=== PATIENT | male | born 1975 | race Hispanic/Latino ===

== ENCOUNTER 2019-02-11 19:08 | Emergency (ER) | payer OTHER ==
[~2019-02-11] VITALS: Ht 167.6 cm; Wt 113.4 kg
[2019-02-11] MEDS ORDERED: ABILIFY15 MG PO (19:21)
[2019-02-11] MEDS ORDERED: BENZTROPINE MESY1 MG PO (19:22)
[2019-02-11] MEDS ORDERED: DIPHENHYDRAMINE50 M1 PO (19:23)
[2019-02-11] MEDS ORDERED: CYMBALTA20 MG PO (19:23)
[2019-02-11] MEDS ORDERED: ZOLOFT100 MG PO (19:24)
[2019-02-11] MEDS ORDERED: ZYRTEC10 MG PO (19:24)
[2019-02-11] MEDS ORDERED: GLUCOPHAGE XR500 MG PO (19:25)
[2019-02-11] MEDS ORDERED: MELOXICAM15 MG PO (19:25)
[2019-02-11] MEDS ORDERED: OMEPRAZOLE20 MG PO (19:26)
[2019-02-11] MEDS ORDERED: RANITIDINE HCL300 MG PO (19:27)
[2019-02-11] MEDS ORDERED: FLOMAX0.4 MG PO (19:28)
[2019-02-11] MEDS ORDERED: NASACORT10.8 ML NAS (19:30)
== END 2019-02-11 23:06 | disposition home or self-care (01) ==
LOC: ED 19:08
DX: M48.56XA Collapsed vertebra, not elsewhere classified, lumbar region, initial encounter for fracture (principal); N39.0 Urinary tract infection, site not specified; E11.9 Type 2 diabetes mellitus without complications; K21.9 Gastro-esophageal reflux disease without esophagitis; Z87.442 Personal history of urinary calculi; Z79.899 Other long term (current) drug therapy
CPT/HCPCS: 74176; 80053; 81001; 85025; 96361; 96374; 99284-25; J1885; J7030

== ENCOUNTER 2019-10-28 07:51 | Emergency (ER) | payer OTHER ==
[~2019-10-28] VITALS: Ht 167.6 cm; Wt 113.4 kg
[~2019-10-28 07:51] MED LIST: ABILIFY15 MG PO; BENZTROPINE MESY1 MG PO; CYMBALTA20 MG PO; DIPHENHYDRAMINE50 M1 PO; FLOMAX0.4 MG PO; GLUCOPHAGE XR500 MG PO; MELOXICAM15 MG PO; NASACORT10.8 ML NAS; OMEPRAZOLE20 MG PO; RANITIDINE HCL300 MG PO; ZOLOFT100 MG PO; ZYRTEC10 MG PO
== END 2019-10-28 13:18 | disposition home or self-care (01) ==
LOC: ED 07:51
DX: R11.2 Nausea with vomiting, unspecified (principal); R10.9 Unspecified abdominal pain; E11.9 Type 2 diabetes mellitus without complications; K21.9 Gastro-esophageal reflux disease without esophagitis; Z79.899 Other long term (current) drug therapy; Z79.84 Long term (current) use of oral hypoglycemic drugs
CPT/HCPCS: 74177; 80053; 81001; 83690; 85025; 99284-25; J2405; Q9967; U0002

== ENCOUNTER 2020-07-31 09:44 | Inpatient (IN) | payer OTHER ==
[~2020-07-31] VITALS: Ht 167.6 cm; Wt 79.4 kg
[~2020-07-31 09:44] MED LIST changes: +AVAPRO150 MG PO; +DOK100 MG PO; +FLUVOXAMINE MAL50 MG PO; +MELATONIN3 M3 PO; +OPCON-A EYE DRO15 ML OU; +PEPCID40 MG PO; +PROPRANOLOL HCL40 MG PO; +SULFAZINE EC500 MG PO; +ZOFRAN4 MG PO
[2020-08-01] MEDS ORDERED: OMEPRAZOLE20 MG PO (06:32)
[2020-08-01] MEDS ORDERED: VENTOLIN HFA18 GM (06:33)
--- NOTE | 2020-08-01 06:41 | NUR ---
PT WAS SWABBED FOR COVID 19 FULL PPE DOONED SAMPLE SENT [facility]
--- NOTE | 2020-08-01 07:39 | EKG ---
[facility] [address] [facility] [place] [address] Signed Normal sinus rhythm Incomplete right bundle branch block Borderline ECG No previous ECGs available Confirmed by DOTTY AVINA MD ([id number]) on 08/01/2020 7:39:16 AM Electronically Signed By: DOTTY AVINA MD 08/01/20 0739 PATIENT NAME: MARTIN KATHARINE GIBSON JR Electrocardiogram DATE OF : 77 PHYSICIAN: DOTTY AVINA MD REPORT #: [id number] REPORT IS CONFIDENTIAL AND NOT TO BE RELEASED WITHOUT AUTHORIZATION
--- NOTE | 2020-08-01 13:45 | NUR ---
08/01/20 1345 Josefa Mckeon 6181-PATIENT ARRIVED TO PACU ON 6L MASK RR EVEN SR. PATIENT OPENS EYES TO VERBAL STIMULI LEO BUSINESS ANALYST MANAGER AT BEDSIDE ASKING ABOUT PAIN PATIENT REPORTS "YES" REMAINS VERY DROWSY DOZES BACK TO SLEEP. ABDOMINAL INCISION CDI, LISSY DRAIN TO LLQ SANGUINOUS DRAINAGE. IVF INFUSING
--- NOTE | 2020-08-01 16:57 | NUR ---
Notified Kerrie VTJacqueline ODOC is needing clinicals today as this pt will be an IP. Faxed Surgery report, hand written H&P, and typed H&P. Called and updated this is all thats in the chart at this time as pt recently arrived on the floor. She requests I just send what we have at this time.
[2020-08-01] MEDS ORDERED: FLUVOXAMINE MAL50 MG PO (17:00)
[2020-08-01] MEDS ORDERED: MIRALAX119 GM PO (17:05)
[2020-08-01] MEDS ORDERED: AZULFIDINE500 MG PO (17:06)
--- NOTE | 2020-08-01 17:08 | NUR ---
MED REC COMPLETE
--- NOTE | 2020-08-01 20:15 | NUR ---
MARKETING SALES REPRESENTATIVE started 8/10 abd pain. on 2LNC, lungs clear bilat, abd large tender, firm midline incision covered with acticoat, nazia draina in place L abd. patent draining sanguineous drainage. dressing intact. abdomen with hypoactive bowel tones auscultated. f/c in place draining dark yellow urine. scds in place. IVF and morphine MARKETING SALES REPRESENTATIVE infusing RA, elevated. no c/o n/v
--- NOTE | 2020-08-01 22:13 | NUR ---
CALL LIGHT ANSWERED, COOL WASH CLOTH PROVIDED PER pt REQUEST. NO FURTHER NEEDS. ISAELURDS X2 IN ROOM, CALL LIGHT IN REACH.
--- NOTE | 2020-08-01 23:46 | NUR ---
IN WITH RN TO EMPTY MCFARLAND, RN EMPTY LISSY, DATA RECORDED IN CHART, NO FURTHER NEEDS AT THIS TIME
--- NOTE | 2020-08-01 23:46 | NUR ---
COMFORTABLE, WATCHING TV, ABD DRESSING IN PLACE, DENIES PASSING GAS YET, LISSY WITH SMALL AMOUNT OF DRAINAGE. TOLERATING SIPS OF CLEAR
--- NOTE | 2020-08-01 23:55 | NUR ---
PER PRIMARY RN, DYLAN PT NOW IN ROOM AIR, SPO2 AT 96%, RN AWARE OF SATS AT THIS TIME
--- NOTE | 2020-08-02 00:14 | NUR ---
CPOX ON, SATS 96-97%, O2 DC'D. AT THIS TIME, MONSERRAT BE REPLACED IF SATS DROPP TO 90% OR SO PER ORDERS. COMFORTBLE, NO DISTRESS. AWAKE WATCHING TV, USING GASOLINE ATTENDANT WITH GOOD PAIN CONTROL, ABD INCISION DRESSING INTACT WITH OLD DRAINAGE, PAULINA DRAINA PATENT. F/C PATENT. TOLERATING SIPS OF FLUIDS WELL. [address]
--- NOTE | 2020-08-02 01:35 | NUR ---
IN TO GET PT VITALS, REFILLED ICEWATER, PROVIDE NEW MARGARET CATALAN IN FOR ASSESMENT, NO FURTHER NEEDS AT THIS TIME
--- NOTE | 2020-08-02 01:53 | NUR ---
COOP WITH ASSESSMENT, REPOSITIONED IN BED, HOB ELEVATE, USING IS, TEMP SLIGHTLY ELEVATED 99.1, ROOM TEMP DOWN TO 70o, regular bedding left inplace, abd large softer, passed gas, HEA, abd dressing in place, nazia tube and F?C patent. [address] EOCI [address]
--- NOTE | 2020-08-02 03:52 | NUR ---
Pt walked in room around bed, tolerated fair, back to bed,scds inplace, room air, cpox inplace P106, sats 96%, pain rating 8/10 on return, uses HOTEL VALET ATTENDANT with good to fair pain relief
--- NOTE | 2020-08-02 06:00 | NUR ---
AM VITALS DONE, ICE WATER REFILLED, NEW CUP OF JUICE GIVEN, CATH/RONALD CARE DONE, NO FURTHER NEEDS AT THIS TIME
--- NOTE | 2020-08-02 06:24 | NUR ---
PT AWAKE MOST OF THIS SHIFT, WEANED OFF o2, Cpox IN PLACE PER ORDERS HE IS ON INTERNAL COMBUSTION ENGINE ASSEMBLER MORPHINE, TYLENOL ATC,FAIR TO GOOD PAIN RELIEF. MIDLINE ABD INCISION WITH ACTICOAT DRESSING W SMALL AMOUNT OF OLD DRAINAGE, BURPING AND PASSING , HYPERACTIVE BOWEL TONES AT THIS TIME, NO BM. ABD MUCH SOFTER THAN EARLIER ON SHIFT, F/C PATENT, NOT CHRONIC, VOIDING QS. L ABD PAULINA TUBE PATENT DRAINING SMALL AMOUNT OF SANGUINEOUS DRAINAGE. GOT UP AND WALKED IN ROOM, TOLERATED FAIR, BACK TO BED, WEARING ANKLE SHACKLES, 2 EOCI GUARDS IN ROOM.IVF INFUSING W/O PROBLEMS
--- NOTE | 2020-08-02 07:15 | NUR ---
SHIFT REPORT FROM DYLAN ROBLES INCLUDED: pt did not sleep well through the night. pt is now on a LABORER GOLD LEAF pump and reported pain between 4-7 throughout the nightshift. pt was able to get up and ambulate a few yeards in the halls last night, and verbally agrees to ambulate more today. pt VSS. pt has had no issues with N/V. No flatulence, or BM yet. Pt incision site currently CDI, LISSY draining sanguenous fluid WNL, and pt reports 6/10 pain and no nausea at this time. pt in bed, table and call light within reach of his two security officers. Leg shackles in place on pt.
--- NOTE | 2020-08-02 08:28 | NUR ---
PATIENT AWAKE IN BED, 2 GUARDS IN ROOM. BEDBATH COMPLETE, NEW GOWN AND SOCKS. PATIENT AMBULATED AROUND BED AND TO DOOR, 2 COAL PULVERIZER OPERATOR SBA.. PATIENT TOLERATED WELL, BUT VERY PAINFUL. BREAKFAST DELIVERED, RN IN ROOM. GUARDS SWITCHED SHIFT. CALL LIGHT IN REACH
--- NOTE | 2020-08-02 08:30 | NUR ---
ASSESSMENT + MED PASS pt assessment completed, VSS, pain 5/10 at this time. SWEETBREAD TRIMMER pump in use, CPOX on and reads 97% on RA. pt demonstrates proper use of the I.S. and reports using it "during the commercials". pt able to get all meds as ordered, without difficulty. pt midline CDI and LISSY drain site CDI, draining sanguenous fluid WNL. pt denies further needs at this time. pt in bed, table and call light within reach, two guards at bedside, ankle shackles on and in place, CMS intact.
--- NOTE | 2020-08-02 09:00 | NUR ---
VITALS AND I&O9S CHARTED. PATIENT IN BED, 2 EOCI GUARDS IN ROOM. MCFARLAND AND LISSY DRAINED.
--- NOTE | 2020-08-02 09:30 | NUR ---
ROUNDING pt on SECTION CHIEF pump and CPOX reads 98% on RA. pt reports using I.S. during commercials. pt reports 4/10 pain w/o nausea. pt midline CDI and LISSY drain site CDI, draining sanguenous fluid WNL. pt denies further needs at this time. pt in bed, table and call light within reach, two guards at bedside, ankle shackles on and in place, CMS intact.
--- NOTE | 2020-08-02 11:00 | NUR ---
ROUNDING pt reports 6/10 pain after ambulation earlier, but reports willingness to go again. pt on CONTROL PANEL ASSEMBLER pump and CPOX reads 98% on RA at this time. pt midline CDI and LISSY drain site CDI, draining sanguenous fluid WNL. pt denies further needs at this time. pt in bed, table and call light within reach, two guards at bedside, ankle shackles on and in place, CMS intact.
--- NOTE | 2020-08-02 11:16 | NUR ---
1PA PATIENT AMBULATED AROUND BED AND TO DOOR. 2EOCI GUARDS STANDING BY. PATIENT VERY PAINFUL, BUT TOLERATED WELL. DETERMINED. PATIENT SWEATY, WIPEDOWN OF GROIN AND BUTTOCKS PROVIDED. CALL LIGHT IN REACH,
--- NOTE | 2020-08-02 12:00 | NUR ---
ROUNDING pt requests more jello. pt denies nausea at this time. tolerating clears well. pt reports 6/10 pain after ambulation earlier. pt on EXTERIOR DOOR INSTALLER pump and CPOX reads 98% on RA at this time. pt midline CDI and LISSY drain site CDI, draining sanguenous fluid WNL. pt denies further needs at this time. pt in bed, table and call light within reach, two guards at bedside, ankle shackles on and in place, CMS intact.
--- NOTE | 2020-08-02 13:30 | NUR ---
IV STARTED IN RIGHT FOREARM + RIGHT WRIST IV DCd pt was bothered that his right hand IV was getting in the way of him when he gets up. pt requested that we "put a new one somewhere better". so 20g IV placed in his right forearm, WNL, one attempt. pt tolerated well. IV draws and flushes well. pt wrist IV DCd WNL, pressure dressing applied. pt denies further needs at this time. pt in bed, table and call light within reach of his guards, x2 at bedside.
--- NOTE | 2020-08-02 13:40 | NUR ---
SHIFT REPORT pt being seen as a 1 day post op (sigmoid collectomy). pts midline dressing still CDI, abdominal distention is slightly less than last shift. pt has been between 3-7/10 in pain throughout today and last night. pt on a morphine CASTING MACHINE OPERATOR AUTOMATIC pump at this time, CPOX running while on CASTING MACHINE OPERATOR AUTOMATIC, o2sat >95% all day. pt has been up to ambulate >3 times today. pt has been very cooperative with care plans. pt given bed bath by Nedra ABDUL. pt tolerating his clears diet without vomiting, but has had a few episodes of nausea. pt requested that we "move his IV" so a new IV was placed in his right forearm, and the right wrist IV was DCd WNL. Dr Garcia reports that he will likely DC the askew tomorrow, and that pts diet can advance after he has had a BM &/or passed gas. pt is from [facility] and has two guards in room with him at all times. pt A&O all shift, voiding quantity sufficient.
--- NOTE | 2020-08-02 14:00 | NUR ---
MED PASS + ASSESSMENT + CLERICAL OFFICE WORKER MED REFILL pt assessment complete, VSS. pts midline still CDI and LISSY drain dressing CDI and draining red/sanguenous fluid. pt was just up to walk again and is reporting 9/10 pain and no nausea at this time. pt denies further needs at this time, table and call light within reach. two officers in room at all times. pt able to take all meds without difficulty. Jazlyn RN to bedside to teach me how to reset the CLERICAL OFFICE WORKER pump. pt CLERICAL OFFICE WORKER pump refilled and set as ordered. pt RR 16, even and unlabored, pt alert and cooperative with cares. table and call light within reach, officers at bedside
--- NOTE | 2020-08-02 15:00 | NUR ---
ROUNDING pt in bed, denies needs at this time. table and call light within reach. guards at bedside.
--- NOTE | 2020-08-02 16:00 | NUR ---
PHONE CONVERSATION WITH BIANCA ochoa has been reporting heartburn. ordered mylanta/maalox 30mls Q6 PRN, and protonix 40mgs IVP daily. orders placed.
--- NOTE | 2020-08-02 16:30 | NUR ---
MED PASS the vazquezursarah had shift change and two new guards are present. pt given the Maalox and protonix as ordered. pt had requested something to "stop the pulling on his askew" and I placed a stat lock, but then he reported that it was bothersome to have something there on his leg. he denied that it hurt him, and maintained that it was just "not feeling right to have something else down there now". Stat lock removed and pt was grateful. pt repositioned in bed, and ankle shackles assessed, CMS intact. pt denies further needs at this time. table and call light within reach, new guards verbalized understanding of call light.
--- NOTE | 2020-08-02 16:35 | NUR ---
Pt resides at [facility] and will return to their infirmary on dc. He was able to walk in the room with RN and aid today. Pt remains very painful and not tolerating excercise well.
--- NOTE | 2020-08-02 17:30 | NUR ---
ROUNDING pt had walked again, and reports that it increases his pain but helps his gas and helps him to burp. pt denies needs at this time. pt in bed, table and call light within reach, 2 guards present.
--- NOTE | 2020-08-02 17:45 | NUR ---
SBA PATIENT WALKING AROUND BED TO DOOR AND BACK. PAINFUL, BUT TOLERATED WELL. 2 GUARDS IN ROOM. VITALS AND I&OS CHARTED. MCFARLAND AND LISSY DRAINED. PATIENT REPOSTITIONED. CALL LIGHT IN REACH, NO OTHER NEEDS
--- NOTE | 2020-08-02 18:13 | NUR ---
ROUNDING pt denies needs at this time. pt in bed, table and call light within reach, 2 guards present.
--- NOTE | 2020-08-02 19:30 | NUR ---
FINISHED RECEIVING SHIFT REPORT. PATIENT RESTING IN BED. 2 EOCI OFFICERS PRESENT. PATIENT IN ANKLE RESTRAINTS. PATIENT USING HIS RISK DEVELOPER BUTTON AND HAS NO NEEDS AT THIS TIME. PAIN IN THE ABD IS 6/10 AND PATIENT JUST PUSHED THE BUTTON. MCFARLAND IS DRAINING. MIDLINE ABD DRESSING DRY AND INTACT. CALL LIGHT IS IN REACH.
--- NOTE | 2020-08-02 21:15 | NUR ---
PATIENT REMAINS IN BED, LISSY DRAINED FOR 10MLS, MCFARLAND EMPTIED, CALL LIGHT IS IN REACH. PATIENT'S PAIN UNDER CONTROL WITH CONCRETE MIXER OPERATOR HELPER. BOWEL TONES PRESENT IN ALL 4 QUADS. RESPIRATIONS REGULAR AND EVEN. 2 EOCI OFFICERS REMAIN PRESENT IN THE ROOM. CALL LIGHT IN REACH. NEW ICE BAG FOR ABD GIVEN, NEW ICE WATER GIVEN. NO OTHER NEEDS AT THIS TIME.
--- NOTE | 2020-08-02 22:21 | NUR ---
PATIENT CALL AND WAS HAVING SOME LOWER LEFT QUAD ABD CRAMPS. PATIENT PULLED UP AND REPOSITIONED IN BED, HAD PATIENT PUNCH HIS FOURTH MATE BUTTON FOR 7/10 ABD PAIN, LISSY DRAIN TUBING STRIPPED AND GOT A LITTLE MORE DRAINAGE OUT. 2 CORRECTIONS OFFICERS REMAIN IN THE ROOM AND PATIENT HAS ANKLE RESTRAINTS ON. PATIENT HAS CALL LIGHT AND ICE PACK PLACED IN THE AREA OF DISCOMFORT. PATIENT WILL CALL IF HE HAS MORE NEEDS.
--- NOTE | 2020-08-02 23:42 | NUR ---
PATIENT HAVING 10/10 ABD PAIN, 4 HOUR LOCKOUT ON GARNISHMENT SPECIALIST REACHED, CALLED WITH PATIENT'S PAIN CONCERNS AND VS.ORDER FOR 2-5MG IV MORPHINE Q30 MINUTES BREAKTHROUGH PAIN GIVEN. PATIENT GIVEN 4MG IV MS AND PAIN CAME DOWN TO 4/10, PATIENT WAS ALSO HAVING NAUSEA AND 4MG IV ZOFRAN WAS ALSO GIVEN. CALL LIGHT IN REACH.
--- NOTE | 2020-08-03 00:05 | NUR ---
PATIENT CONTINUES TO HAVE NAUSEA AND 4MG IV ZOFRAN REPEATED AND PATIENT'S NAUSEA IS IMPROVING. CALL LIGHT IN REACH. 2 EOCI OFFICERS REMAIN PRESENT.
--- NOTE | 2020-08-03 00:46 | NUR ---
PT ASKED FOR A JELLO, REPLACED APPLE JUICE, EMPTIED MCFARLAND AT THIS TIME
--- NOTE | 2020-08-03 02:41 | NUR ---
SEE THE NEXT NOTE FOR THIS TIME IT WAS A LATE ENTRY.
--- NOTE | 2020-08-03 03:30 | NUR ---
PATIENT'S SATS DROPPING INTO THE 80'S WHEN ASLEEP, 2L/NC PUT ON PATIENT FO SLEEPING. PATIENT'S PAIN CONTROLLED AT 4/10. CALL LIGHT IN REACH AND EOCI OFFICERS REMAIN AT BEDSIDE.
--- NOTE | 2020-08-03 04:32 | NUR ---
PATIENT HAS AGAIN MET HIS 4 HOUR LOCKOUT AND HAVING 8/10 LLQ ABD PAIN. 4MG IV MS GIVEN AND 1,000MG OFIRMEV IV GIVEN. PATIENT STOOD AT THE BEDSIDE TO ADJUST HIS LINEN ON HIS BED, PATIENT ABLE TO SCOOT HIMSELF UP IN BED. CALL LIGHT IN REACH AND 2 EOCI OFFICERS AT BEDSIDE.
--- NOTE | 2020-08-03 05:46 | NUR ---
PATIENT HAS HAD A FAIR AMOUNT OF PAIN THIS SHIFT MAINLY IN THE LLQ AREA. PATIENT WAS HITTING HIS LOCKOUT ON HIS VENEER CUTTER AND HAD TO BE CALLED AND IV ORDERS FOR MORPHINE IV FOR BREAKTHROUGH PAIN WERE GIVEN. PATIENT HAS HAD TO HAVE 4MG IV TWICE THIS SHIFT WHEN HE HAD HIT THE LOCKOUT JARVIS ON HIS VENEER CUTTER. PATIENT'S CURRENT PAIN IS 3-4/10 AND HE FEELS COMFORTABLE. PATIENT TAKING PO FLUIDS WELL AND URINE OUTPUT FROM MCFARLAND IS QS. BOWEL TONES ARE HEARD X4 AND PATIENT DID HAVE A FEW HOURS ON 2L/NC WHEN SATS WOULD DROP INTO THE 80'S WHILE SLEEPING, BUT BACK ON RA AT THIS TIME WITH CONTINOUS O2 SATS IN THE 90'S. 2 EOCI OFFICERS HAVE REMAINED AT BEDSIDE ALL SHIFT AND PATIENT REMAINS IN ANKLE RESTRAINTS. CALL LIGHT IS IN REACH AND NO OTHER NEEDS AT THIS TIME.
--- NOTE | 2020-08-03 08:09 | NUR ---
PATIENT UP IN CHAIR, 2 GUARDS IN ROOM. FACE AND HANDS WASHED, BODY OF PATIENT WIPED DOWN WELL. CALL LIGHT AND BEDSIDE TABLE IN REACH. NO OTHER NEEDS AT THIS TIME
--- NOTE | 2020-08-03 08:45 | NUR ---
SCHEDULED MEDS GIVEN, PT UP TO RECLINER FOR CLEAR LIQUID DIET, TAKING SM SIPS, C/O INCREASED CRAMPING THIS AM, DENIES PASSING FLATUS YET. ACTIVE BOWEL SOUNDS. USING MORPHINE LINE SUPERVISOR APPROP. DISCUSSED WITH PATIENT IMPORTANCE OF WALKING TODAY TO HELP STIMULATE BOWELS. PT IS RELUCTANT BUT AGREES TO TRY.
--- NOTE | 2020-08-03 09:30 | NUR ---
DR VALENZUELA HERE TO SEE PT, AGREES PT NEEDS TO WALK.
--- NOTE | 2020-08-03 10:16 | OR ---
[facility] [address], [place] [address] Signed DATE OF OPERATION: 08/01/2020 SURGEON: Demian Valenzuela MD PREOPERATIVE DIAGNOSES: 1. Persistent left lower abdominal pain, chronic recurrent episodes of diverticulitis. 2. Morbid obesity (truncal obesity). POSTOPERATIVE DIAGNOSES: 1. Persistent left lower abdominal pain, chronic recurrent episodes of diverticulitis. 2. Morbid obesity (truncal obesity). PROCEDURE: 1. Sigmoid colectomy with end-to-end coloproctostomy (prolonged, complicated, difficult). 2. Mobilization of splenic flexure. ANESTHESIA: General endotracheal, Demian Kovacs CRNA and bilateral tap blocks. Elizabeth De Santiago CRNA and local superior aspect incision 30 mL of 0.25% Marcaine with epinephrine. INDICATION: This 44-year-old man is a prisoner at [facility] and has had chronic recurrent left lower abdominal pain related to diverticulitis demonstrated on CT scan and with colonoscopy in June confirming diverticulosis, but no sign of malignancy. He has multiple family members with the same problem. He strongly wishes to have surgical resection of this problem. He understands the risks of operation including, but not limited to, bleeding, infection, anastomotic failure, need for other indicated procedures, and so on. Understanding this, he wished to proceed. FINDINGS: The patient has significant truncal obesity including thick abdominal wall pannus and thickened fatty mesentery of the colon and elsewhere. A very thickened omentum was also noted. The colon itself did not show signs of acute inflammation. There were diverticula most dominantly in the sigmoid. There was no sign of perforation, scarring, or abscess. Sigmoid resection to the mid rectum was undertaken and an end-to-end coloproctostomy undertaken. Although, I typically would use a side to end coloproctostomy, the caliber of the proximal and distal segments for anastomosis were essentially the same and despite great mobility of the splenic flexure as much redundancy of colon as possible was utilized to provide a tension-free anastomosis. A leak testing was performed as well showing no sign of leak at the anastomosis. Electronically Signed By: DEMIAN VALENZUELA MD 08/03/20 1016 PATIENT NAME: KATHARINE CANNON JR OPERATIVE REPORT DATE OF : 77 REPORT #: [id number] PHYSICIAN: DEMIAN VALENZUELA MD PCP: JOSEFA GIRARD NP REPORT IS CONFIDENTIAL AND NOT TO BE RELEASED WITHOUT AUTHORIZATION [facility] [address], [place] [address] Signed DESCRIPTION OF PROCEDURE: The patient was brought to the operating room, given a general endotracheal anesthetic. Preoperative antibiotic Ancef and Flagyl were given. A Carty catheter was placed. The abdomen was prepared with a chlorhexidine solution after clipping and sterilely draped. An incision was made in the low midline later extended just above the umbilicus. The abdominal wall pannus was nearly 4-6 inches thick. The abdomen was entered showing a very thickened omentum as well. Marked obesity of the mesenteric folds was noted. A Bookwalter retractor was affixed to the table. The small bowel was examined and found to be normal. The appendix was normal. The colon itself had diverticular changes, but no sign of perforation, abscess, or stricture. A Bookwalter retractor was used and small bowel was packed to the right side of the abdomen. This gave good exposure to the thickened sigmoid mesentery. The white line of Toldt was incised mobilizing the left colon and sigmoid to the midline. Dissection was carried inferiorly to the upper to mid rectum. To facilitate further dissection of the sigmoid mesentery, the distal descending colon was designated as the point of transection. The area for transection of the mesentery was scored and using tonsil clamps, the mesenteric vascular pedicles secured. They were doubly secured with 0 silk ties. A 75 mm KYUNG stapling device was used to transect the distal descending colon and the remaining left colon retracted cephalad. Sequential application of tonsil clamps to the sigmoid mesentery was undertaken, doubly securing the vascular pedicles. Dissection was carried to the level of the sacral promontory and using electrocautery, the mesentery scored anteriorly designating an area considered to the upper to mid rectum. This area was freed more fully with electrocautery, ultimately identifying the rectum which was (surprisingly) not particularly large as usually is the case. The area of anticipated anastomosis was such that a space of about 6 cm between the proximal and distal segments was noted. This necessitated dedicated splenic flexure mobilization. The bulky left colonic mesentery was bluntly freed from the retroperitoneum using electrocautery and blunt dissection and peritoneal attachments in the region of the splenic flexure were similarly mobilized. The left colon could be more fully mobilized, ultimately bringing it to an area, for which anastomosis would be appropriate. Though normally I would recommend and do a side-to-end coloproctostomy, so as to take advantage of the mobilized colon and avoid a tension-free anastomosis, an end-to-end coloproctostomy was deemed more advisable. There was no significant mismatch between the proximal and distal segments either. The KYUNG stapling device was used to transect the mid rectum. The mesentery and Electronically Signed By: DEMIAN VALENZUELA MD 08/03/20 1016 PATIENT NAME: KATHARINE CANNON JR OPERATIVE REPORT DATE OF : 77 REPORT #: [id number] PHYSICIAN: DEMIAN VALENZUELA MD PCP: JOSEFA GIRARD NP REPORT IS CONFIDENTIAL AND NOT TO BE RELEASED WITHOUT AUTHORIZATION [facility] [address], [place] [address] Signed peritoneal folds had been scored so as to provide more mobility of the distal segment as well. With meticulous care, an end-to-end coloproctostomy was fashioned using interrupted 3-0 silk sutures. A two layer techinique was used. The mesenteric defect was secured with 3-0 silk sutures as well. Both proximal and distal segments appeared completely viable. Irrigation was undertaken and the edges of the anastomosis were marked with clips for future reference as necessary. A red rubber catheter was passed by the circulating nurse into the rectum and the anastomosis submerged under sterile saline. Insufflation of the rectum with a red rubber catheter showed no sign of leak at the anastomosis. The catheter was removed and air held within the rectum was evacuated with manual pressure. Through a left lower quadrant incision, a 7 mm flat Enrique drain was placed and aligned into the left pericolic gutter. Isolating laparotomy pads were removed and the omentum replaced to a natural configuration as was the small bowel. Attention was then turned towards closure. The midline fascia was reapproximated with running bidirectional #1 PDS suture. Subcutaneous tissue was copiously irrigated and skin closed with running subcuticular 3-0 Vicryl. Steri-Strips were applied as was a silver sponge dressing. The drain was attached to bulb suction. BLOOD LOSS: Less than 50 mL in aggregate. The operation was very prolonged, complicated, and difficult on the basis of his significant obesity, but it was accomplished safely. At conclusion of the procedure, tap blocks were placed. Not mentioned previously was an injection of 30 mL of 0.25% Marcaine with epinephrine into the superior aspect of the incision just above the umbilicus to cover a dermatome that might not be entirely covered by the tap block. MD CARTER Ayala/NIAL /[id number] Electronically Signed By: DEMIAN VALENZUELA MD 08/03/20 1016 PATIENT NAME: KATHARINE CANNON OPERATIVE REPORT DATE OF : 77 REPORT #: [id number] PHYSICIAN: DEMIAN VALENZUELA MD PCP: JOSEFA GIRARD NP REPORT IS CONFIDENTIAL AND NOT TO BE RELEASED WITHOUT AUTHORIZATION [address] [address] Signed cc: Josefa Girard NP Copies: JOSEFA GIRARD NP ~ Electronically Signed By: DEMIAN VALENZUELA MD 08/03/20 1016 PATIENT NAME: MARIO KATHARINE GIBSON JR OPERATIVE REPORT DATE OF : 77 REPORT #: [id number] PHYSICIAN: DEMIAN VALENZUELA MD PCP: BLOOD,JOSEFA PRESTON NP REPORT IS CONFIDENTIAL AND NOT TO BE RELEASED WITHOUT AUTHORIZATION
--- NOTE | 2020-08-03 10:37 | NUR ---
PATIENT IS SITTING IN [place] WATCHING TV. GUARDS AT BEDSIDE. VITALS AND I&OS ARE DONE AND DOCUMENTED. CALL LIGHT IS IN REACH. NO FUTHER ASSISTANCE NEEDED.
--- NOTE | 2020-08-03 11:00 | NUR ---
PT AMBULATING LOOP IN HALLWAY ACCOMPANIED BY 2 GUARDS AND TWO SCREENER PERFUMER'S.
--- NOTE | 2020-08-03 11:30 | NUR ---
BRUNA GILMAN AT THIS TIME. WILL MONITOR UO CLOSELY.
--- NOTE | 2020-08-03 12:00 | NUR ---
PATIENT AMBULATED IN NGUYEN, FROM ROOM TO END OF NGUYEN USING FWW.. PAINFUL BUT TOLERATED WELL. 2 [employer] GUARDS STANDING BY. BACK TO CHAIR FOR LUNCH, ICE PACK PROVIDED.
--- NOTE | 2020-08-03 14:30 | NUR ---
PATIENT AMBULATED TO END OF NGUYEN AND AROUND CORNER. BACK TO CHAIR. LEGS ELEVATED, CALL LIGHT IN REACH. PATIENT BELCHING, BUT UNABLE TO PASS GAS. 2 GUARDS IN RRROM
--- NOTE | 2020-08-03 14:37 | NUR ---
PT AMBULATING BETTER, UP IN RECLINER FOR MEALS, MAALOX GIVEN AT THIS TIME FOR C/O INDIGESTION, MONITORING UO, NO VOID YET. DENIES FLATUS, ABD IS DISTENDED BUT DOES HAVE ACTIVE BOWEL TONES. DENIES NAUSEA.
--- NOTE | 2020-08-03 15:55 | NUR ---
PATIENT UP TO BR, UNABLE TO VOID MORE THAN A FEW DROPS. BACK TO CHAIR. 2 GUARDS IN ROOM. THESE 2 PARTICULAR GUARDS USUALLY STAY SEATED AND ON PERSONAL CELL PHONES WHEN THIS MEAT COOLER IS IN ROOM (UNLESS PATIENT IS UP IN ROOM OR AMBULATING) CALL LIGHT IN REACH, NO OTHER NEEDS AT THIS TIME
--- NOTE | 2020-08-03 16:00 | NUR ---
PATIENT UP TO BR. WAS ABLE TO VOID A FEW DROPS. 2 [employer] GUARDS IN ROOM. BACK TO CHAIR, CALL LIGHT IN REACH. ICE CHIPS AND ICE PACK PROVIDED.
--- NOTE | 2020-08-03 16:30 | NUR ---
PT WAS BLADDER SCANNED FOR 200ML. PT DOES FEEL LIKE HE NEEDS TO VOID. WILL CONT. TO MONITOR CLOSELY.
--- NOTE | 2020-08-03 18:06 | NUR ---
PATIENT AWAKE IN BED. 2 GUARDS IN ROOM. PATIENT HAS HAD 550 OUT, RN NOTIFIED. CALL LIGHT IN REACH, NO OTHER NEEDS AT THIS TIME
--- NOTE | 2020-08-03 18:19 | NUR ---
PT HAS BEEN AMBULATING LOOP IN HALLWAY WITH SBA AND ACCOMPANIED BY 2 GUARDS. ABD IS DISTENDED AND TENDER, ACTIVE BT'S, PT DENIES FLATUS YET, HAS BEEN SIPPING CLEAR LIQUIDS AND EATING A FEW BITES OF JELLO. MEDICATED FOR HEARTBURN USING MAALOX WITH GOOD RELIEF, CONT. USING MORPHINE TALENT DEVELOPMENT COORDINATOR ORDERED AND MAINTAINING PAIN SCALE ABOUT 5. [place] DC'D AND HAS VOIDED 550ML YELLOW URINE SINCE DC'D. SABRINAG IS CDI TO ABD. LISSY PATENT WITH SCANT AMOUNT RED SERROUS FLUID. USING CALL LIGHT APPROP.
--- NOTE | 2020-08-03 18:25 | NUR ---
PATIENT AWAKE IN BED, 2 GUARDS AT BEDSIDE. CALL LIGHT WITHIN REACH
--- NOTE | 2020-08-03 20:04 | NUR ---
PATIENT FINISHED WALKING 4 LABS AROUND MED/SURG WITH THE 2 [employer] OFFICERS ASSIGNED TO HI. PATIENT'S PAIN REMAINS 4/10 AND PATIENT IS USING HIS MINER HELPER. PATIENT HAS NO OTHER NEEDS AT THIS TIME. PATIENT UP IN THE BATHROOM WITH OFFICERS PRESENT.
--- NOTE | 2020-08-03 20:43 | NUR ---
VS AND I&O COMPLETED. NO OTHER NEEDS AT THIS TIME. NUTRITION EDUCATION PROVIDED.
--- NOTE | 2020-08-03 21:14 | NUR ---
PATIENT HAVING SOME CONCERN ABOUT HIS TESTICLES BEING SWOLLEN, THIS NURSE DID NOT SEE ANY VISUALLY NOTEABLE SWELLING. PATIENT GIVEN A CUP OF SODA AND A CUP OF JELLO REQUESTED. PATIENT HAS NO OTHER NEEDS AT THIS TIME. CALL LIGHT IN REACH AND 2 [employer] OFFICERS AT BED SIDE.
--- NOTE | 2020-08-03 21:43 | NUR ---
PATIENT CONCERNED THERE MIGHT BE LEAKAGE FROM HIS DRESSINGS INTO HIS ABD FOLD. INFORMED PATIENT THAT THERE WAS NO LEAKAGE, BUT DID CLEAN THE ARE WITH SOME WIPES FOR COMFORT. PATIENT VERBALIZED UNDERSTANDING. 2 [employer] OFFICERS REMAIN AT BEDSIDE. CALL LIGHT IN REACH.
--- NOTE | 2020-08-03 23:14 | NUR ---
PATIENT CALLED FOR AN ICE PACK AND THIS WAS GIVEN TO PLACE OVER SURGICAL SITE. NO OTHER NEEDS AT THIS TIME. CALL LIGHT IN REACH.
--- NOTE | 2020-08-04 02:13 | NUR ---
PATIENT CALLED TO INFORM THIS NURSE HE WAS NOW PASSING FLATUS. PATIENT HAD NO OTHER NEEDS AT THIS TIME. CALL LIGHT IN REACH AND 2 [employer] OFFICERS PRESENT IN PATIENTS ROOM.
--- NOTE | 2020-08-04 03:18 | NUR ---
PATIENT CALLED BECAUSE HIS PUMP WAS BEEPING. NEW BAG OF IV FLUID HUNG, NEW ICE WATER GIVEN, PATIENT ALSO GIVEN SOME MAALOX FOR HEARTBURN, PATIENT HAD NO OTHER NEEDS AT THIS TIME. CALL LIGHT IN REACH AND 2 [employer] OFFICERS IN THE ROOM.
--- NOTE | 2020-08-04 04:33 | NUR ---
WHEELCHAIR DRIVER SYRINGE EMPTY, NEW SYRINGE PLACED. MARGARET CLARK WITNESSED. pt HAS WHEELCHAIR DRIVER BUTTON AND CALL LIGHT IN HAND. RATED PAIN 4/10. NO FURTHER REQUESTS AT THIS TIME.
--- NOTE | 2020-08-04 05:30 | NUR ---
PATIENT HAS SLEPT ON AND OFF THROUGH THE NIGHT. PTIENT'S SATS WILL DROP INTO THE 80'S WHEN ASLEEP, SO 2L/NC PLACED FOR SLEEP. PATIENT REMAINS ON CONTINUOUS PULSE OX FOR MISSILE CONTROL PILOT USE. PATIENT'S PAIN BETTER CONTROLLED TONIGHT AND NO BREAKTHROUGH MEDS WERE GIVEN AND PATIENT'S PAIN HAS REMAINED 3-4/10. PATIENT AMBULATING TO THE BATHROOM WELL AND VOIDING QS. PATIENT HAS BEEN PASSING FLATUS THE SECOND HALF OF THE SHIFT AND ABD FEELS MUCH MORE COMFORTABLE. PATIENT AMBULATED WITH WALKER AND 2 [employer] OFFICERS AROUND THE MED/SURG FLOOR 4 LAPS ON THIS SHIFT. VS HAVE BEEN STABLE. MIDLINE DRESSING REMAINS INTACT WITH SOME SMALL DRY DRAINAGE NOTED ON IT WELL SOME SMALL DRY DRAINAGE AROUND ON THE DRESSING AROUND LISSY DRAIN. LISSY HAS ONLY PUT OUT A SMALL AMOUNT OF DRAINAGE THIS SHIFT. PATIENT HAS BEEN UP A FAIR AMOUNT AND HAS NOT WANTED TO KEEP HIS SCD'S ON, SO THEY HAVE NOT BEEN USED MUCH. CALL LIGHT IS IN REACH AND [employer] OFFICERS REMAIN IN THE ROOM. NO OTHER CARE NEEDS AT THIS TIME.
--- NOTE | 2020-08-04 09:00 | NUR ---
PT IS ALERT, IN BETTER SPIRITS TODAY, UP TO BATHROOM WITH SBA ONLY TO ASSIST WITH IV POLE, DENIES NAUSEA, PASSING FLATUS, STATES HE IS HUNGRY, GOOD PAIN CONTROL WITH MORPHINE DOG CATCHER ORDERED. 2 GUARDS IN ROOM, LISSY IS TAPED SECURELY. USING CALL LIGHT APPROP.
--- NOTE | 2020-08-04 10:41 | NUR ---
PATIENT IS CALM. FRESH WATER GIVEN. VITALS AND I&OS ARE DONE AND DOCUMENTED. 2 GUARDS IN ROOM. CALL LIGHT IS IN REACH. NO FURTHER NEEDS AT THIS TIME.
--- NOTE | 2020-08-04 10:46 | NUR ---
DR VALENZUELA IN TO SEE PT ALL QUESTONS ANSWERED, PLAN GOING FORWARD DISCUSSED.
--- NOTE | 2020-08-04 11:13 | NUR ---
PT UP AMBULATES A COUPLE LAPS AROUND THE NGUYEN WELL TOLERATED. RETURNS TO ROOM SITTING UP IN THE CHAIR. CREAM OF MUSHROOM SOUP PROVIDED OXY X2. PT ENCOURAGED NOT TO USE PLANTING MATERIAL CARRIER UNLESS HE HAS TO, UNDERSTANDING VERBALILZED
--- NOTE | 2020-08-04 14:19 | NUR ---
PT C/O CRAMPING TYLENOL ADMINISTERED. PT AMBULATES THE NGUYEN SEVERAL TIMES THIS SHIFT RETURNS TO RESTING IN BED. ANIL X2 PRESENT. PT TOLERATES SOUP FOR LUNCH NO NAUSEA, JUST THE CRAMPING. EDUCATION PROVIDED PT VERBALIZES UNDERSTANDING.
--- NOTE | 2020-08-04 14:39 | NUR ---
PATIENT IS PAYING IN BED. 2 GUARDS IN ROOM. FRESH WATER AND SPRITE GIVEN. VITALS AND I&OS ARE DONE AND DOCUMENTED. CALL LIGHT IS IN REACH. NO FURTHER NEEDS AT THIS TIME.
--- NOTE | 2020-08-04 17:32 | NUR ---
PT TOLERATING FULL LIQUID DIET WELL. AGREES TO AMBULATE THE HALLS AGAIN WHEN HE GETS UP TO TOILET. USES I/S APPROPRIATELY WITH INSTRUCTION. GAURDS CONTINUE IN THE ROOM. PAIN MEDS ADMINISTERED PER REQUEST
--- NOTE | 2020-08-04 19:25 | NUR ---
WENT IN TO EMPTY THE LISSY.
--- NOTE | 2020-08-04 19:44 | NUR ---
REPORT RECEIVED FROM DAYSFAROOQFT RN. LAYING IN BED AWAKE AND ALERT. PT REPORTS NO FURTHER NEED WHEN ASKED, WILL CONTINUE PLAN OF CARE.
--- NOTE | 2020-08-04 20:11 | NUR ---
CALL LIGHT ANSWERED. pt REQUESTING PRN HEARTBURN MEDICATION. PRIMARY RN NOTIFIED. VSS. pt ANSWERING QUESTIONS REGARDING MEDICATION REGIMEN, OXYGEN. QUESTIONS ANSWERED. pt 97% ON RA. CPOX IN PLACE FOR MONITORING OVERNIGHT. PRIMARY RN [place] IN ROOM.
--- NOTE | 2020-08-04 20:25 | NUR ---
THIS RN IN TO ASSESS PT AND ADMINISTER SCHEDULED MEDICATIONS. PT LAYING IN BED AWAKE AND ALERT. PT REPORTS A 5/10 ABDOMINAL PAIN. PT WAS GIVEN A WARM PACK IN A PILLOWCASE TO HELP WITH THE PAIN. SCHEDULED MEDICATIONS ADMINISTERED. PT REPORTS HAVING A BM EARLIER THAT WAS BLACK. PT INSTRUCTED NOT TO FLUSH NEXT BM TO ALLOW THIS RN TO INSPECT IT. PT AGREED TO THAT. PT ASSESSED AT THIS TIME, ABDOMINAL INCISION AND LISSY SITES ARE C/D/I. WITH NO NEW SIGNS OF BLEEDING OR DRAINAGE. LISSY TUBE EMPTIED EARLIER BY RIGGING UP WORKER WHICH CONTAINED 20ML. IVF INFUSING ORDERED AT THIS TIME. PT REPORTS NO FURTHER NEEDS WHEN ASKED. CORRECTIONAL OFFICERS IN ROOM, CALL LIGHT IN REACH, BED IN LOWEST POSITON, WILL CONTINUE PLAN OF CARE.
--- NOTE | 2020-08-04 22:05 | NUR ---
RESPONDED TO PT CALL LIGHT. THIS RN IN TO ADMINISTER SCHEDULED TYLENOL. PT SITTING AT BEDSIDE AWAKE AND ALERT. PT STATES HE HAD 8/10 ABDOMINAL PAIN AT THIS TIME. PT STATES THE WARM PACK HELPED WITHT HE PAIN BUT HE WANTED TO TRY A COLD PACK. COLD PACK PROVIDED TO PT FOR PAIN/DISCOMFORT. PT REPORTS NO FURTHER NEEDS AT THIS TIME AND IS NOW LAYING BACK IN BED WATCHING TV. WILL CONTINUE PLAN OF CARE. CALL LIGHT IN REACH, BED IN LOWEST POSTION. IVF INFUSING ORDERED.
--- NOTE | 2020-08-04 23:36 | NUR ---
THIS RN IN TO ASSESS PT'S PAIN LEVEL. PT AWAKE AND ALERT LAYING IN BED AND STATES HE HAS 8/10 PAIN EVEN AFTER TYLENOL AND ICE PACK. PT REQUESTS ONLY 1 OXYCODONE AT THIS TIME HE STATES 2 MADE HIM DROWSY. PRN OXYCODONE 5MG ADMINISTERED. PT THEN HAD A CRAMP SHORTLY AFTER WHICH MADE HIM HAVE A SMALL EPISODE OF INCONTINENCE/STOOL IN THE BED. PT ABLE TO GET UP WITHOUT ASSISTANCE AND AMBULATE TO TO BATHROOM TO HAVE A BM AND VOID. PT ABLE TO GET BACK UP WITHOUT ASSISTANCE AND WALK OVER TO BED. PT REPORTS NO SOB OR LIGHTHEADEDNESS WHEN WALKING AND STATES HIS PAIN REMAINED CONSISTENT WHILE AMBULATING. PT NOW IN BED WITH CLEAN LINENS, IVF INFUSING ORDERED. PT PROVIDED WITH ICE WATER AND JUICE HE REQUESTED. PT REPORTS NO FURTHER NEEDS, WILL CONTINUE PLAN OF CARE. CALL LIGHT IN REACH, BED IN LOWEST POSITION, 2 CORRECTIONAL OFFICERS IN ROOM, CPOX MONITORING PT.
--- NOTE | 2020-08-05 00:17 | NUR ---
THIS RN IN TO ASSESS PT'S PAIN LEVEL. PT STATES HE IS STILL IN PAIN AND THE REQUESTED AMOUNT HELPED A SMALL AMOUNT WITH THE PAIN. PT REPORTS NO FURTHER NEEDS AT THIS TIME, ICE PACK WITH PT IN PLACE. PT REPORTS NO FURTHER NEEDS A T THIS TIME WHEN ASKED, WILL CONTINUE PLAN OF CARE. CALL LIGHT IN REACH, BED IN LOWEST POSITION.
--- NOTE | 2020-08-05 01:30 | NUR ---
RESPONDED TO PT CALL LIGHT. PT STATES IV WAS ALARMING. VOLUME ADDED TO IVF. PT STATED HE WAS HAVING 8/10 PAIN. PRN OXYCODONE TITRATED TO MAXIMUM DOSE. PT PROVIDED WITH AN ENSURE SHAKE PER HIS REQUEST. PT REPORTS NO FURTHER NEEDS AT THIS TIME. PT ASSESSED AT THIS TIME. MIDLINE INCISION C/D/I, LISSY SITE C/D/I WITH NO SIGNS OF BLEEDING. LISSY TUBE CONTAINS A SMALL AMOUNT OF SANGUINOUS FLUID. PT REPORTS NO FURTHER NEEDS AT THIS TIME, IVF INFUSING ORDERED. CALL LIGHT IN REACH, BED IN LOWEST POSITION, 2 CORRECTIONAL OFFICERS IN ROOM, WILL CONTINUE PLAN OF CARE.
--- NOTE | 2020-08-05 02:35 | NUR ---
STROKE BELT SANDER OPERATOR PUMP REMOVED FROM pt ROOM STROKE BELT SANDER OPERATOR IS DISCONTINUED. 7ML OF MORPHINE REMAINING IN STROKE BELT SANDER OPERATOR SYRINGE. WASTED PER PROTOCOL WITH ROD ROBLES.
--- NOTE | 2020-08-05 02:59 | NUR ---
pt REQUESTED TO TALK TO CHARGE NURSE. THIS RN TO ROOM WITH PRIMARY RN. DISCUSSED PAIN MANAGEMENT pt DETAILED THAT HE HAD "FOUR DIFFERENT KINDS OF PAIN" HUNGER PAIN, STABBING PAIN, DULL PAIN, AND PULSATING PAIN. pt RELATED "WHERE I COME FROM THEY DON'T GIVE ME A LOT OF PAIN MEDICATION, FOR THEIR OWN REASONS. HERE I WAS FINALLY ABLE TO EXPERIENCE NOT HAVING PAIN." IN REFERENCE TO THE MANAGER CHEMISTRY PUMP. DISCUSSED THE SIDE EFFECTS OF NARCOTICS AND THE NATURE OF HIS SURGERY. pt STATED "THEY TELL ME THAT OVER AND OVER." pt STATED "I DON'T UNDERSTAND WHY THE NURSE ON DAY SHIFT LET ME HAVE PAIN MEDICATION EVERY THREE HOURS BUT [place]NE WON'T." WHEN ASKED IF 1 TABLET OF OXY EVERY THREE HOURS WAS EFFECTIVE pt STATED "I DIDN'T GET ANY RELIEF EXCEPT WHEN I TOOK THE TWO, TOGETHER, AND IT ONLY LASTED FOR 2 HOURS. AFTER I WAS IN TOO MUCH PAIN TO DO WHAT YOU GUYS ARE ASKING ME TO DO." pt WAS UNABLE TO VERBALIZE WHAT HE WANTED FOR PAIN MEDICATION. DISCUSSED IMPORTANCE OF ICE AND AMBULATION. pt REFUSED TO WALK AT THIS TIME. ASKED ABOUT pt's ALLERGY TO ASPIRIN, pt STATED "I DON'T UNDERSTAND WHY PEOPLE THINK I HAVE AN ALLERGY TO ASPIRIN. I KEEP TELLING THEM I DON'T HAVE THAT ALLERGY AND PEOPLE KEEP ASKING ABOUT IT. I ONLY HAVE AN ALLERGY TO CIPRO." PULLED UP ALLERGY LIST ON COMPUTER, READ TO pt, pt AFFIRMED ALL ALLERGIES EXCEPT ASPIRIN CORRECT. pt STATES "I HAVE BEEN TAKING IBUPROFEN AND TYLENOL BEFORE THIS BECAUSE THAT IS ALL I CAN GET THERE." pt REPORTED BEING TRAUMATIZED BY THE SURGERY AND HAVING PANIC ATTACKS AND ANXIETY. DOES NOT TAKE ANY MEDICATIONS TO TREAT MENTAL HEALTH BECAUSE OF "SIDE EFFECTS" DISCUSSED PLAN OF CARE. PROVIDED ICE PACKS AND FOOD. GUARDS AT BEDSIDE. CALL LIGHT WITHIN REACH.
--- NOTE | 2020-08-05 04:56 | NUR ---
RESPONDED TO PT CALL LIGHT. PT STATED HE WANTED HIS LISSY DRAINED AND ANOTHER ENSURE SHAKE. LISSY DRAINED OF SANGUINOUS FLUID WHICH CONTAINED 15ML, PT REPORTS NO FURTHER NEEDS AT THIS TIME AND WAS UPDATED ON HIS PLAN OF CARE AND NEXT SCHEDULED PAIN MEDICATION AND AVAILABLE PRN OXYCODONE. FRANKO SINTA IN TO ASSIST WITH VITALS AT THIS TIME AND EMPTYING LISSY TUBE. WILL CONTINUE PLAN OF CARE. CALL LIGHT IN REACH, BED IN LOWEST POSITION, IVF INFUSING ORDERED, CORRECTIONAL OFFICERS IN ROOM WITH PT.
--- NOTE | 2020-08-05 05:02 | NUR ---
V/S AND I&O DONE. PICKED UP ROOM GARBAGE.
--- NOTE | 2020-08-05 06:30 | NUR ---
THIS RN IN TO ADMINISTER SCHEDULED TYLENOL. PT ASLEEP IN BED BUT AWOKE EASILY. PT ALERT AND ORIENTED AND STATES HE IS AT 7/10 ABDOMINAL PAIN. PT GIVEN ORDERED PAIN MEDICATION. MIDLINE INCISION C/D/I, LISSY SITE C/D/I. BOWEL TONES LISTENED TO AND WERE HYPOACTIVE. PT STATES HE HAS NOT HAD ANY FURTHER BM'S. PT HAT TIPPED OF URINE. MARGARET VELASCO IN TO ASSESS PT WELL AND ASSIST WITH A WALK AROUND THE NGUYEN. WILL CONTINUE PLAN OF CARE.
--- NOTE | 2020-08-05 06:50 | NUR ---
DR. VALENZUELA CALLED AND UPDATED ON PT'S CONDITION AND PAIN. NEW ORDERS PLACED FOR PRN MOTRIN, Q4 OXYCODONE, AND ADVANCEMENT TO A REGULAR DIET. WILL CONTINUE PLAN OF CARE.
--- NOTE | 2020-08-05 06:51 | NUR ---
IN pt ROOM TO ASSESS BOWEL TONES, BOWEL TONES HYPOACTIVE X 4. ABD SOFT, DISTENDED, TENDER WITH PALPATION LLQ. 1PA WITH FWW TO AMBULATE IN HALLWAY X 1 LAP. pt ABLE TO TRANSFER SELF IN AND OUT OF BED INDEPENDENTLY. ENCOURAGED TO BRACE ABD WITH PILLOW. UP TO RESTROOM FOR VOID AND BACK TO BED. GUARDS PRESENT IN ROOM. IVF INFUSING WNL ORDERED.
--- NOTE | 2020-08-05 07:01 | NUR ---
IN pt ROOM FOR REQUESTED PAIN MEDICATION ADMINISTRATION. pt RESTING IN BED WITH EYES CLOSED, STATES "I WASN'T SLEEPING, I WAS JUST TRYING TO". RATES PAIN 7-8/10 IN ABDOMEN. PRN OXYCODONE AND MOTRIN ADMINSITERED. NO ADDITIONAL REQUESTS. GUARDS IN ROOM.
--- NOTE | 2020-08-05 09:45 | NUR ---
REPORT RECEIVED FROM NIGHT RN AND PT. CARE RESUMED. PT. IS AMBULATING WITH STANDBY ASSIST FROM THE BATHROOM AND DENIES DIZZINESS. PT. REPORTS 4/10 ABD PAIN THAT IS TOLERABLE. PT. ALSO STATES THAT HE HAS PAIN AROUND LEFT SHOULDER WITH AMBULATION THAT IS ACHING AND NOT RADIATING. DENIES SHOULDER PAIN AT REST. MIDLINE DRESSING IS C.D.I. ABD IS TENDER WITH PALP. AND BOWEL TONES ARE ACTIVE. IV SITE WNL WITH IVF RUNNING CONT. PT. ORDERED REG. DIET BREAKFAST AND DENIES NAUSEA. PT. LEFT RESTING WITH 2 C/O'S FROM [employer] AT BEDSIDE.
--- NOTE | 2020-08-05 10:40 | NUR ---
Spoke with pt and he is using a walker. Discussed with pt, [employer] will provide him with a walker. No other needs as pt will return to [facility].
--- NOTE | 2020-08-05 11:15 | NUR ---
PT. REPORTS 7/10 PAIN IN ABDOMEN THAT IS ACHING AND REQUESTS PAIN MED. PRIOR TO AMBULATION. ALSO STATES HE IS SLIGHTLY NAUSEOUS AFTER BREAKFAST. ADMIN. ZOFRAN AND OXYCODONE P.O. PT. DENIES FURTHER NEED AND LEFT RESTING WITH CALL LIGHT IN REACH.
--- NOTE | 2020-08-05 13:19 | NUR ---
RN CALLED TO ROOM BY CORRECTIONS OFFICERS. PT STANDING IN BATHROOM AT SINK, PT DIAPHERETIC AND STATES HE FEELS HE CANNOT BREATH. PT ASSISTED BACK TO BED. VITAL SIGNS ASSESSED, HR 144, BP 150/88 (105), AND O2 SATS 98%, TACHYPNIC. REQUESTED ADDITIONAL NURSE. PT INSTRUCTED TO TAKE SLOW DEEP BREATHS. EKG OBTAINED, SHOWED SINUS TACH. VITAL SIGNS REASSESSED HR 139, BP 153/102 (114), PT REMAINS TACHYPNIC. ONCE PT ABLE TO SPEAK, PT STATES HE WAS TRYING TO HAVE BM AND WAS BEARING DOWN, HAD SHARP PAIN IN HIS RECTUM, THEN FELT WARM AND FAINT. BLOOD GLUCOSE ASSESSED AND WAS 135. PT RESPIRATIONS RETURNING TO NORMAL, VITAL SIGNS ASSESSED, BP 146/93(106), HR 90.
--- NOTE | 2020-08-05 14:40 | NUR ---
PATIENT IN BED AND STATES HE IS STILL HAVING ABD PAIN AND RECTAL PAIN THAT IS 7/10. ADMIN. OXYCODONE P.O. ABD ACTICOAT DRESSING IS C.D.I. BOWEL TONES ACTIVE AND LUNGS CLEAR. PT. STATES HE IS VERY ANXIOUS ABOUT HIS EARLIER EXPERIENCE WHILE IN THE BATHROOM. PATIENT REASSURED. LISSY DRAINING SERISANGUINOUS FLUID AND EMPTIED OF 5ML. PT. TOLERATING REG. DIET AND DENIES NAUSEA. PT. LEFT RESTING IN BED WITH C/O'S PRESENT.
--- NOTE | 2020-08-05 15:00 | NUR ---
PATIENT IN THE ROOM WITH DAUGHTER, DENIES PAIN AND STATES HER HEADACHE IS GONE. PT. TOLERATING A FULL LIQUID DIET AND DENIES NAUSEA. LUNGS CLEAR AND BOWEL TONES ACTIVE. PT. DENIES ABD TENDERNESS WITH PALP. PT. STATES SHE HAS BEEN AMBULATING TO THE BATHROOM AND IN THE HALLWAY AND DENIES DIZZINESS. IV SITE IS WNL AND SALINE LOCKED. P.O. ABX ADMIN. AND PT. LEFT RESTING IN BED WITH CALL LIGHT IN REACH.
--- NOTE | 2020-08-05 16:10 | NUR ---
PT ASSISTED TO WALK IN NGUYEN, COMPLETED 1.5 LAPS AROUND NURSES STATION. PT CONTINUES TO COMPLAIN OF PAIN IN RECTUM. PT VOIDED AND ASSISTED BACK TO BED. PT REQUESTING NEW IV PLACEMENT CURRENT IV IS BEING RUBBED BY WRIST RESTRAINTS. ATTEMPTED NEW IV BUT UNABLE TO ADVANCE. RIGHT WRIST IV SECURED WITH COBAN. PT DENIES OTHER NEEDS AT THIS TIME.
--- NOTE | 2020-08-05 19:23 | NUR ---
PATIENT SPILLED HIS CUP OF ICE WATER ON HIS BED. HE NEEDED A NEW GOWN BED SPREAD FLAT SHEET. NEW CHUCKS.
--- NOTE | 2020-08-05 19:53 | NUR ---
REPORT RECEIVED FROM HAILE ROBLES. WILL CONTINUE PLAN OF CARE.
--- NOTE | 2020-08-05 21:15 | NUR ---
VS COMPLETE, STABLE. pt RESTING IN BED. SBA TO RESTROOM, ABLE TO TRANSFER SELF WITH MINIMAL ASSIST WITH LEGS IN AND OUT OF BED. IVF INFUSING WNL ORDERED. PRIMARY RN IN ROOM. ROOM TIDIED. GUARDS AT BEDSIDE.
--- NOTE | 2020-08-05 21:30 | NUR ---
THIS RN IN TO ASSESS PT AND ADMINISTER ORDERED MEDICATIONS. PT AWAKE AND ALERT LAYING IN BED. IVF INFUSING. PT REPORTS PAIN IN HIS ABDOMEN AND RECTUM WHICH HE STATES IS 6/10. SCHEDULED MEDICATIONS ALONG WITH PRN IBUPROFEN AND MAALOX ADMINISTERED. PT ASSESSED AT THIS TIME. MIDLINE INCISION C/D/I WITH NO NEW SIGNS OF BLEEDING. LISSY SITE C/D/I, LISSY TUBE DRAINING SEROSANGUINOUS FLUID. BOWEL TONES ACTIVE, PT REPORTS TENDERNESS IN HIS LEFT UPPER QUADRANT. PT REPORTS NO FURTHER NEEDS AT THIS TIME WHEN ASKED, WILL CONTINUE PLAN OF CARE. CALL LIGHT IN REACH, BED IN LOWEST POSITION, CORRECTIONAL OFFICERS IN ROOM, PT IN 4X CORRECTIONAL RESTRAINTS.
--- NOTE | 2020-08-05 23:50 | NUR ---
RESPONDED TO PT CALL LIGHT. PT LAYING IN BED AWAKE AND ALERT. PT STATES HE WOULD LIKE TO TAKE IS PRN PAIN MEDICATION FOR 5/10 ABDOMINAL PAIN WHICH HE STATES IS "MODERATE". 10MG PRN OXYCODONE ADMINISTERED AT THIS TIME. PT STATES HE HAS BEEN PASSING GAS AND FEELING MOVEMENT "RUMBLING" IN HIS ABDOMEN. BOWEL TONES ACTIVE, MIDLINE INCISION C/D/I, LISSY TUBE STILL DRAINING, IVF INFUSING ORDERED. PT STATES HE HAS NOT HAD A BM BUT HAS GOTTEN UP TO VOID. PT REPORTS NOT FEELING LIGHTHEADED WHEN GETTING UP.PT STATES HE INITIALLY WOKE UP DUE TO HIS CPOX ALARMING, PT PUT ON 1.5L O2. SPO2 WHILE AWAKE WAS READING 96% ON ROOM AIR PRIOR TO PLACING NC ON. PT PROVIDED WITH AN ENSURE SHAKE PER HIS REQUEST. PT REPORTS NO FURTHER NEEDS AT THIS TIME, CALL LIGHT IN REACH, BED IN LOWEST POSITION, CORRECTIONAL OFFICERS IN ROOM, CORRECTIONAL RESTRAINTS ON. WILL CONTINUE PLAN OF CARE.
--- NOTE | 2020-08-06 01:38 | NUR ---
THIS RN IN TO CHECK ON PT. PT AWAKE AND ALERT ON 1.5 L O2, IVF INFUSING. PT REPORTS HIS PAIN IS AT A 5/10. NEW BAG OF IVF HANGED, LISSY TUBE DRAINED OF SANGUINOUS FLUID 20ML PER PT'S REQUEST. PRN ZOFRAN ADMINISTERED DUE TO NAUSEA. PT REPORTS HE IS STILL PASSING GAS, PT HAS GONE TO THE BATHROOM TO VOID SINCE LAST VISIT. PT REPORTS NO FURTHER NEEDS AT THIS TIME WHEN ASKED, WILL CONTINUE PLAN OF CARE. CALL LIGHT IN REACH, BED IN LOWEST POSITION, CORRECTIONAL OFFICERS IN ROOM. WILL CONTINUE PLAN OF CARE.
--- NOTE | 2020-08-06 03:56 | NUR ---
CALL LIGHT ANSWERED. pt REQUESTING PRN PAIN MEDICATION. RATES PAIN 7/10 IN ABDOMEN. STATES "I WILL WALK ONCE THESE KICK IN". PRN IBUPROFEN AND OXYCODONE ADMINISTERED. GUARDS PRESENT IN ROOM. CALL LIGHT WITHIN REACH. NO ADDITIONAL REQUESTS.
--- NOTE | 2020-08-06 04:56 | NUR ---
PT SLEPT PERIODICALLY THROUGH THE NIGHT. PT HAD COMPLAINTS OF ABD PAIN AND PAIN IN HIS RECTUM DURING THE SHIFT AND WAS GIVEN SCHEDULED TYLENOL ALONG WITH PRN MOTRIN. PRN OXYCODONE ALSO GIVEN THROUGHOUT THE NIGHT. PT'S PAIN HAS BEEN MORE CONTROLLED AND RANGING BETWEEN 5-6 /10. PT STILL HAVING SANGUINOUS DRAINAGE IN HIS LISSY TUBE. MIDLINE INCISION IS C/D/I AND SHOWS NO NEW SIGNS OF BLEEDING ALONG WITH THE LISSY SITE. PT GIVEN PRN ZOFRAN DUE TO NAUSEA. PT USING CALL LIGHT APPROPRIATELY AND ABLE TO AMBULATE TO BATHROOM WITH MINIMAL ASSISTANCE.
--- NOTE | 2020-08-06 06:20 | NUR ---
THIS RN IN TO ASSESS PT AND ADMINISTER ORDERED MEDICATIONS. PT REPORTS HAVING 3/10 ABDOMINAL PAIN AND SOME MILD RECTAL PAIN WHICH ARE TOLERABLE. PT VITALS TAKEN, PT ASSESSED. MIDLINE INCISION C/D/I WITH NO NEW SIGNS OF BLEEDING ON DRESSING. LISSY SITE ALSO C/D/I WITH NO NEW SIGNS OF BLEEDING. LISSY TUBE CONTAINED SANGUINOUS FLUID WHICH WAS DRAINED. TOTAL DRAINAGE FOR THE SHIFT WAS 40ML. PT NO LONGER ON OXYGEN AT THIS TIME. PT HAS COMPLAINTS OF HOTFLASHES AND STATES HE HAS BEEN FEELING THEM SPORADICALLY. ROOM IN TEMPERATURE WAS TURNED DOWN DUE TO THEM. PT REPORTED HAVING HEARTBURN AFTER ASSESSMENT AND WAS GIVEN PRN MAALOX. PT REPORTS NO FURTHER NEEDS AT THIS TIME, CALL LIGHT IN REACH, BED IN LOWEST POSITION. CORRECTIONAL OFFICERS IN ROOM, IVF INFUSING ORDERED, WILL CONTINUE PLAN OF CARE.
--- NOTE | 2020-08-06 07:00 | NUR ---
SHIFT REPORT RECEIVED. PATIENT UP WALKING IN HALLWAY WITH CO X2. APPEARS STEADY.
--- NOTE | 2020-08-06 07:45 | NUR ---
PATIENT PROVIDED WITH BREAKFAST AND MORNING MEDICATIONS. PATIENT IS ALERT AND CALM. REPORTS "MODERATE PAIN", 1 TAB ORN OXY PROVIDED. PATIENT DENIES NAUSEA. IV FLUIDS PER ORDER, SITE WNL. MIDLINE DRESSING INTACT, NO SIGNS OF BLEEDING. LISSY IN PLACE, SITE WNL. MINIMAL OUTPUT IN BULB. SEROSANGUENOUS. PATIENT IN 4 POINT RESTRAINTS. PULSE OX REMOVED. PATIENT TOLERATING ROOM AIR. BOWEL SOUNDS ACTIVE, ABD DISTENDED BUT SOFT. PATIENT DENIED FURTHER NEEDS. CALL LIGHT IN REACH.
--- NOTE | 2020-08-06 09:28 | NUR ---
PATIENT ATE 100% BREAKFAST AND REPORTS MILD PAIN AT THIS TIME. ENCOURAGED PATIENT TO AMBULATE. PATIENT SL AT THIS TIME FOR WALKING. PATIENT ALSO REPORTS SMALL SOFT FORMED STOOLS.
--- NOTE | 2020-08-06 09:51 | NUR ---
PATIENT AMBULATED IN THE HALLWAYS WITH CO X2. PATIENT APPEARS STEADY ON HIS FEET.
--- NOTE | 2020-08-06 09:57 | NUR ---
PATIENT IS SITTING UP IN BED. FRESH SODA GIVEN. FRESH WATER OFFERED BUT REFUSED DUE TO HAVING FRESH SODA. CALL LIGHT IS IN REACH. NO FURTHER NEEDS AT THIS TIME.
--- NOTE | 2020-08-06 10:10 | NUR ---
PATIENT REPORTS PAIN 4/10 AND REQUEST PRN PAIN MEDS. MOTRIN PROVIDED. PATIENT ALSO REQUEST ZOFRAN BUT DENIES NAUSEA. ENCOURAGED PATIENT TO REST.
--- NOTE | 2020-08-06 10:19 | NUR ---
IN ROOM. LISSY REMOVED. PATIENT TOLERATED WELL. BANDAGE APPLIED. PATIENT REQUESTING PRN PAIN MEDS PRIOR TO DC. MD AGREES.
[2020-08-06] MEDS ORDERED: IBUPROFEN600 MG PO (10:24)
[2020-08-06] MEDS ORDERED: OXYCODONE HCL5 MG PO (10:24)
[2020-08-06] MEDS ORDERED: ACETAMINOPHEN500 MG PO (10:25)
--- NOTE | 2020-08-06 10:57 | NUR ---
PATIENT PROVIDED WITH PRN PAIN MEDS PRIOR TO DC. DRESSING ON OLD LISSY SITE IS INTACT WITH MILD AMOUNT OF BLOOD NOTED. IV SITE DC BY MICHAEL DIXON, SITE WNL. CO ASSISTING PATIENT TO DRESS.
--- NOTE | 2020-08-06 14:02 | PATH ---
[facility] [address] [place], [place] [address] Signed SPECIMEN(S): A RECTOSIGMOID SPECIMEN SOURCE: A. RECTOSIGMOID CLINICAL HISTORY: Diverticulitis. FINAL PATHOLOGIC DIAGNOSIS: Colon, rectosigmoid, resection: - Diverticulosis. - Viable surgical margins. NAL:cml:C2NR MICROSCOPIC EXAMINATION: Histologic sections of all submitted blocks are examined by light microscopy. These findings, together with the gross examination, support the pathologic diagnosis. GROSS DESCRIPTION: The specimen, labeled "XC, A," and designated on the requisition "rectosigmoid," is received in formalin and consists of a previously opened, unoriented 15.6 cm long, up to 6.5 cm in circumference bowel segment with attached adipose tissue up to 5.4 cm wide. The bowel serosa is sampson, smooth, glistening. One end has a previously partially removed, 3.7 cm long staple line which is removed and the underlying tissue is inked blue. This end has been previously perpendicularly sectioned. The opposing end has a 3.2 cm long staple line which is removed and the underlying tissue is inked orange. The bowel mucosa is sampson with usual folds and multiple outpouchings consistent with diverticula. The outpouchings are 0.7 cm from the orange-inked margin and 1.8 cm from the blue-inked margin. The outpouchings are without gross evidence of perforation or abscess. Cross Country And Track And Field Coach sections are submitted in three cassettes (A1-A3). AI (under the direct supervision of a pathologist) The Gross Description was prepared using a voice recognition system. The report was reviewed for accuracy; however, sound-alike word errors, addition and/or deletions may occur. If there is any question about this report, please contact Client Services. PATIENT NAME: KATHARINE CANNON JR PATHOLOGY DATE OF : 77 REPORT #: [id number] PHYSICIAN: NEFTALI VERDUZCO PCP: CANDY HATCH NP REPORT IS CONFIDENTIAL AND NOT TO BE RELEASED WITHOUT AUTHORIZATION [facility] [address] [place] [address] Signed PERFORMING LABORATORY: The technical component was performed by [facility], [address] [place] [address] (Prosthetics Technician: Imani Mcwilliams MD; CLIA# [id number]). Professional interpretation was performed by [facility], [address] [address] (CLIA# [id number]). Diagnostician: Milagro Jose MD Pathologist Electronically Signed 08/06/2020 Copies: ~ PATIENT NAME: KATHARINE CANNON JR PATHOLOGY DATE OF : 77 REPORT #: [id number] PHYSICIAN: NEFTALI PATHOLOGY PCP: CANDY HATCH NP REPORT IS CONFIDENTIAL AND NOT TO BE RELEASED WITHOUT AUTHORIZATION
--- NOTE | 2020-08-06 15:23 | DS ---
[facility] [address] [place], [place] [address] Signed ADMISSION DATE: 08/01/2020 DISCHARGE DATE: 08/06/2020 REASON FOR ADMISSION: This 44-year-old obese man is a prisoner at [facility] and has had chronic recurrent left lower abdominal pain related to diverticulitis demonstrated on CT scan and colonoscopy in June confirming diverticulosis, but no sign of malignancy. Has multiple family members with the same problem. The patient strongly desired sigmoid resection due to his recurrent symptoms. He is admitted for that purpose. PERTINENT PHYSICAL EXAM: GENERAL: Relatively short man who has had a significant truncal obesity. CHEST: Clear. HEART: Regular without murmur. ABDOMEN: Quite obese, but soft. No sign of focal tenderness currently. EXTREMITIES: Showed no clubbing, cyanosis, or edema. HOSPITAL COURSE: On August 01, 2020, he underwent open sigmoid colectomy with end-to-end coloproctostomy. The procedure was prolonged, complicated, and difficult mainly related to a significant obesity. Mobilization of splenic flexure was a specific feature of operation to allow for mobility and anastomosis. A drain was placed. Postoperatively, he was maintained with a clear liquid diet initially. Pain control was initially performed despite efforts to maintain an opioid-free recovery. A morphine PASTER HAT LINING was required. The patient had progressive improvement despite discomfort and once mobilized, was able to expel flatus well and with prompt recovery of bowel function. By day of discharge, he is ambulating well, tolerating a solid diet, has had multiples formed bowel movements and feeling well overall. The patient is instructed to avoid lifting more than 10 pounds for the next 4 weeks given his obesity and strong intention of avoiding incisional hernia. His diet is regular. He will keep Steri-Strips on. A drain that was placed on operation was removed on the day of discharge. DISCHARGE MEDICATIONS: Include: Electronically Signed By: DEMIAN VALENZUELA MD 08/06/20 1523 PATIENT NAME: KATHARINE CANNON JR DISCHARGE SUMMARY DATE OF : 77 REPORT #: [id number] PHYSICIAN: DEMIAN VALENZUELA MD PCP: CANDY HATCH NP REPORT IS CONFIDENTIAL AND NOT TO BE RELEASED WITHOUT AUTHORIZATION [facility] [address] [place], [place] [address] Signed 1. Ibuprofen 600 mg p.o. q.6 hours as needed for pain #60 (patient tolerated this well recently and in the past despite aspirin allergy, so stated). 2. Oxycodone 5 mg tablets one p.o. q.4 hours as needed for pain #20. 3. Tylenol 500 mg tablets two tablets p.o. q.8 hours #60. He will resume his usual medications of Zyrtec 10 mg p.o. daily, metformin 500 mg two tabs daily, Avapro 150 mg p.o. at bedtime, melatonin 3 mg p.o. at bedtime, naphazoline eyedrops one each eye for dry eyes as needed, propranolol 40 mg p.o. b.i.d., omeprazole 20 mg b.i.d. and fluvoxamine maleate 50 mg p.o. daily. He will discontinue at this time DSS, famotidine, ondansetron, MiraLAX, and azulfidine tablets. DISCHARGE DIAGNOSES: 1. Chronic recurrent left lower abdominal pain related to recurrent diverticulitis. 2. Obesity. 3. Status post sigmoid colectomy with end-to-end anastomosis, August 01, 2020. 4. Anxiety disorder, not otherwise defined. 5. Gastroesophageal reflux. FOLLOWUP PLANS: I will see him back in the [facility] in 4-6 weeks. MD CARTER Ayala/NIAL /[id number] cc: CECELIA Dickson Copies: MARCIE OVALLE ~ Electronically Signed By: DEMIAN VALENZUELA MD 08/06/20 1523 PATIENT NAME: MARIO GIBSONKATHARINE YVES DISCHARGE SUMMARY DATE OF : 77 REPORT #: [id number] PHYSICIAN: DEMIAN VALENZUELA MD PCP: CANDY HATCH NP REPORT IS CONFIDENTIAL AND NOT TO BE RELEASED WITHOUT AUTHORIZATION
--- NOTE | 2020-08-06 16:00 | NUR ---
Spoke with staff, will send dc summary to [facility].
--- NOTE | 2020-08-06 22:02 | EKG ---
[facility] [address] [facility] [place], [place] [address] Signed Sinus tachycardia Otherwise normal ECG Confirmed by MADDIE NDIAYE MD ([id number]) on 08/06/2020 10:01:53 PM Electronically Signed By: MADDIE NDIAYE MD 08/06/202201 PATIENT NAME: MARTIN KATHARINE GIBSON JR Electrocardiogram DATE OF : 77 PHYSICIAN: MADDIE NDIAYE MD REPORT #: [id number] REPORT IS CONFIDENTIAL AND NOT TO BE RELEASED WITHOUT AUTHORIZATION
== END 2020-08-06 11:25 | disposition home or self-care (01) | DRG 330 ==
LOC: MS 08-01 06:04 → DSVR 08-01 06:04 → MS 08-01 08:45
PROVIDERS: ADMIT Surgery; ATTEND Surgery
PROC: 3E0T3BZ Introduction of Anesthetic Agent into Peripheral Nerves and Plexi, Percutaneous Approach (ICD-10-PCS; 2020-08-01)
PROC: 3E0T33Z Introduction of Anti-inflammatory into Peripheral Nerves and Plexi, Percutaneous Approach (ICD-10-PCS; 2020-08-01)
PROC: 0DTN0ZZ Resection of Sigmoid Colon, Open Approach (ICD-10-PCS; principal; 2020-08-01 08:40)
DX: K57.92 Diverticulitis of intestine, part unspecified, without perforation or abscess without bleeding (principal); Z68.41 Body mass index [BMI] 40.0-44.9, adult; Z20.822 Contact with and (suspected) exposure to COVID-19; G89.18 Other acute postprocedural pain; I10 Essential (primary) hypertension; E11.9 Type 2 diabetes mellitus without complications; F32.9 Major depressive disorder, single episode, unspecified; E66.01 Morbid (severe) obesity due to excess calories; K21.9 Gastro-esophageal reflux disease without esophagitis; F41.9 Anxiety disorder, unspecified; Z88.8 Allergy status to other drugs, medicaments and biological substances; Z88.1 Allergy status to other antibiotic agents; Z79.899 Other long term (current) drug therapy; Z79.84 Long term (current) use of oral hypoglycemic drugs
CPT/HCPCS: 00790; 36415; 64448; 76942; 80048; 80053; 83735; 85025; 93005; 93010; A9270; C9113; C9803; J0131; J0330; J0690; J0694; J1100; J1644; J1885; J2250; J2270; J2300; J2405; J2704; J2765; J2795; J3010; J7121; U0003

== ENCOUNTER 2021-06-05 12:02 | Emergency (ER) | payer OTHER ==
[~2021-06-05] VITALS: Ht 167.6 cm; Wt 128.4 kg
[~2021-06-05 12:02] MED LIST changes: +ACETAMINOPHEN500 MG PO; +AZULFIDINE500 MG PO; +IBUPROFEN600 MG PO; +MIRALAX119 GM PO; +OXYCODONE HCL5 MG PO; +VENTOLIN HFA18 GM
[2021-06-05] MEDS ORDERED: CELEBREX100 MG PO (12:45)
[2021-06-05] MEDS ORDERED: VENTOLIN HFA18 GM INH (12:45)
[2021-06-05] MEDS ORDERED: PRAVASTATIN SOD40 MG PO (12:46)
[2021-06-05] MEDS ORDERED: METOPROLOL SUCC50 MG PO (12:47)
--- NOTE | 2021-06-07 17:32 | EKG ---
[facility] [address] [facility] [place] [address] Signed Normal sinus rhythm Incomplete right bundle branch block Borderline ECG When compared with ECG of 05-AUG-2020 12:46, QT has shortened Confirmed by ETELVINA FERREIRA DO ([id number]) on 06/07/2021 5:32:17 PM Electronically Signed By: ETELVINA FERREIRA DO 06/07/211731 PATIENT NAME: KATHARINE CANNON JR Electrocardiogram DATE OF : 77 PHYSICIAN: ETELVINA FERREIRA DO REPORT #: [id number] REPORT IS CONFIDENTIAL AND NOT TO BE RELEASED WITHOUT AUTHORIZATION
== END 2021-06-05 13:13 | disposition home or self-care (01) ==
LOC: ED 12:02
DX: R56.9 Unspecified convulsions (principal); E11.9 Type 2 diabetes mellitus without complications; K21.9 Gastro-esophageal reflux disease without esophagitis; Z88.8 Allergy status to other drugs, medicaments and biological substances; Z88.1 Allergy status to other antibiotic agents; Z79.899 Other long term (current) drug therapy; Z79.84 Long term (current) use of oral hypoglycemic drugs
CPT/HCPCS: 80048; 85025; 93005; 93010; 99284-25

== ENCOUNTER 2021-06-05 20:47 | Emergency (ER) | payer OTHER ==
[~2021-06-05] VITALS: Ht 167.6 cm; Wt 128.4 kg
[~2021-06-05 20:47] MED LIST changes: +CELEBREX100 MG PO; +METOPROLOL SUCC50 MG PO; +PRAVASTATIN SOD40 MG PO; +VENTOLIN HFA18 GM INH
--- OUTSIDE RECORDS SUMMARY | 2021-06-05 20:56 | XMS ---
PreManage Notification: KATHARINE CANNON Security Collar Closer Lockstitch Events No recent Security Events currently on file CRITERIA MET - [facility] - 2 Visits in 30 Days CARE PROVIDERS There are no care providers on record at this time. Marie has no Care Guidelines for this patient. Jeffrey VISIT COUNT (12 MO.) 2 [facility] TOTAL 2 NOTE: Visits indicate total known visits. ED/C VISIT TRACKING (12 MO.) [facility] [place] [facility] COMPLAINT: - SEIZURE, HEAD INJ, CONFUSION 06/05/2021 12:02 [facility] [place] TYPE: Emergency COMPLAINT: - POSS SEIZURE INPATIENT VISIT TRACKING (12 MO.) 08/01/2020 06:04 [facility] [place] TYPE: Medical Surgical COMPLAINT: - SIGMOID COLECTOMY DIAGNOSES: - Type 2 diabetes mellitus without complications - Major depressive disorder, single episode, unspecified - Allergy status to other antibiotic agents - penitentiary (current) use of oral hypoglycemic drugs - Morbid (severe) obesity due to excess calories - Diverticulitis of intestine, part unspecified, without perforation or abscess without bleeding - Allergy status to other drugs, medicaments and biological substances - Body mass index [BMI]40.0-44.9, adult - Morbid (severe) obesity due to excess calories - Other acute postprocedural pain - Other terminal press operator (current) drug therapy - Gastro-esophageal reflux disease without esophagitis - Other acute postprocedural pain - Gastro-esophageal reflux disease without esophagitis - Essential (primary) hypertension - Anxiety disorder, unspecified - Allergy status to other antibiotic agents - Anxiety disorder, unspecified - Diverticulitis of large intestine without perforation or abscess without bleeding - Allergy status to other drugs, medicaments and biological substances [email or web address]
[2021-06-07] MEDS ORDERED: KEPPRA500 MG PO (15:05)
== END 2021-06-06 00:05 | disposition home or self-care (01) ==
LOC: ED 20:47
DX: G40.909 Epilepsy, unspecified, not intractable, without status epilepticus (principal); R51.9 Headache, unspecified; E11.9 Type 2 diabetes mellitus without complications; K21.9 Gastro-esophageal reflux disease without esophagitis; Z88.8 Allergy status to other drugs, medicaments and biological substances; Z88.1 Allergy status to other antibiotic agents; Z79.899 Other long term (current) drug therapy; Z79.84 Long term (current) use of oral hypoglycemic drugs
CPT/HCPCS: 70450; 72125; 96374; 99284-25; J1953

== ENCOUNTER 2021-06-07 13:24 | Emergency (ER) | payer OTHER ==
[~2021-06-07] VITALS: Ht 167.6 cm; Wt 128.4 kg
--- OUTSIDE RECORDS SUMMARY | 2021-06-07 13:30 | XMS ---
PreManage Notification: KATHARINE CANNON Security Bpm Solution Architect Events No recent Security Events currently on file CRITERIA MET - [facility] - 2 Visits in 30 Days CARE PROVIDERS There are no care providers on record at this time. Marie has no Care Guidelines for this patient. Jeffrey VISIT COUNT (12 MO.) 3 [facility] [place] [facility] TOTAL 3 NOTE: Visits indicate total known visits. ED/C VISIT TRACKING (12 MO.) [facility] [place] [facility] COMPLAINT: - ALTERED LOC 06/05/2021 20:47 [facility] [place] TYPE: Emergency COMPLAINT: - SEIZURE, HEAD INJ, CONFUSION 06/05/2021 12:02 [facility] [place] TYPE: Emergency COMPLAINT: - POSS SEIZURE INPATIENT VISIT TRACKING (12 MO.) 08/01/2020 06:04 [facility] [place] TYPE: Medical Surgical COMPLAINT: - SIGMOID COLECTOMY DIAGNOSES: - Type 2 diabetes mellitus without complications - Major depressive disorder, single episode, unspecified - Allergy status to other antibiotic agents - dementia program director (current) use of oral hypoglycemic drugs - Morbid (severe) obesity due to excess calories - Diverticulitis of intestine, part unspecified, without perforation or abscess without bleeding - Allergy status to other drugs, medicaments and biological substances - Body mass index [BMI]40.0-44.9, adult - Morbid (severe) obesity due to excess calories - Other acute postprocedural pain - Other prospect manager (current) drug therapy - Gastro-esophageal reflux disease without esophagitis - Other acute postprocedural pain - Gastro-esophageal reflux disease without esophagitis - Essential (primary) hypertension - Anxiety disorder, unspecified - Allergy status to other antibiotic agents - Anxiety disorder, unspecified - Diverticulitis of large intestine without perforation or abscess without bleeding - Allergy status to other drugs, medicaments and biological substances [email or web address]
[2021-06-07] MEDS ORDERED: KEPPRA500 MG PO (15:05)
== END 2021-06-07 15:30 | disposition home or self-care (01) ==
LOC: ED 13:24
DX: R56.9 Unspecified convulsions (principal); E11.9 Type 2 diabetes mellitus without complications; K21.9 Gastro-esophageal reflux disease without esophagitis; Z88.8 Allergy status to other drugs, medicaments and biological substances; Z88.1 Allergy status to other antibiotic agents; Z79.899 Other long term (current) drug therapy; Z79.84 Long term (current) use of oral hypoglycemic drugs
CPT/HCPCS: 96374; 99284-25; J1953

== ENCOUNTER 2021-06-09 08:19 | Emergency (ER) | payer OTHER ==
[~2021-06-09] VITALS: Ht 167.6 cm; Wt 128.4 kg
[~2021-06-09 08:19] MED LIST changes: +KEPPRA500 MG PO
--- OUTSIDE RECORDS SUMMARY | 2021-06-09 08:26 | XMS ---
PreManage Notification: KATHARINE CANNON Security Airplane Woodworker Events No recent Security Events currently on file CRITERIA MET - [place] [facility] - 2 Visits in 30 Days CARE PROVIDERS There are no care providers on record at this time. Marie has no Care Guidelines for this patient. Jeffrey V[facility] (12 MO.) 4 [facility] TOTAL 4 NOTE: Visits indicate total known visits. ED/C VISIT TRACKING (12 MO.) [facility]09[facility]2021 08:[facility] [place] [facility] COMPLAINT: - MULTIPLE SEIZURES 06/07/2021 13:[address] [facility] [place] TYPE: Emergency COMPLAINT: - ALTERED LOC 06/05/2021 20:47 [facility] [place] TYPE: Emergency COMPLAINT: - SEIZURE, HEAD INJ, CONFUSION DIAGNOSES: - Allergy status to other antibiotic agents - nursing home (current) use of oral hypoglycemic drugs - Epilepsy, unspecified, not intractable, without status epilepticus - Type 2 diabetes mellitus without complications - Other assisted (current) drug therapy - Gastro-esophageal reflux disease without esophagitis - Allergy status to other drugs, medicaments and biological substances - Headache, unspecified 06/05/2021 12:02 [facility] [place] TYPE: Emergency COMPLAINT: - POSS SEIZURE DIAGNOSES: - Allergy status to other antibiotic agents - Other grain shipper (current) drug therapy - Type 2 diabetes mellitus without complications - director security risk management (current) use of oral hypoglycemic drugs - Allergy status to other drugs, medicaments and biological substances - Unspecified convulsions - Gastro-esophageal reflux disease without esophagitis INPATIENT VISIT TRACKING (12 MO.) 08/01/2020 06:[address] [facility] [place] TYPE: Medical Surgical COMPLAINT: - SIGMOID COLECTOMY DIAGNOSES: - Type 2 diabetes mellitus without complications - Major depressive disorder, single episode, unspecified - Allergy status to other antibiotic agents - nursing home (current) use of oral hypoglycemic drugs - Morbid (severe) obesity due to excess calories - Diverticulitis of intestine, part unspecified, without perforation or abscess without bleeding - Allergy status to other drugs, medicaments and biological substances - Body mass index [BMI]40.0-44.9, adult - Morbid (severe) obesity due to excess calories - Other acute postprocedural pain - Other assisted (current) drug therapy - Gastro-esophageal reflux disease without esophagitis - Other acute postprocedural pain - Gastro-esophageal reflux disease without esophagitis - Essential (primary) hypertension - Anxiety disorder, unspecified - Allergy status to other antibiotic agents - Anxiety disorder, unspecified - Diverticulitis of large intestine without perforation or abscess without bleeding - Allergy status to other drugs, medicaments and biological substances [email or web address]
[2021-06-09] MEDS ORDERED: KEPPRA1000 MG PO (14:32)
[2021-06-09] MEDS ORDERED: DILANTIN100 MG PO (14:32)
== END 2021-06-09 15:30 | disposition home or self-care (01) ==
LOC: ED 08:19
DX: G40.909 Epilepsy, unspecified, not intractable, without status epilepticus (principal); E11.9 Type 2 diabetes mellitus without complications; K21.9 Gastro-esophageal reflux disease without esophagitis; Z88.8 Allergy status to other drugs, medicaments and biological substances; Z88.1 Allergy status to other antibiotic agents; Z79.899 Other long term (current) drug therapy; Z79.84 Long term (current) use of oral hypoglycemic drugs; Z20.822 Contact with and (suspected) exposure to COVID-19
CPT/HCPCS: 80053; 85025; 96365; 96375; 99284-25; C9803; J1170; J1885; J1953; J2060; Q2009; U0003

== ENCOUNTER 2021-08-13 08:19 | Emergency (ER) | payer OTHER ==
[~2021-08-13] VITALS: Ht 167.6 cm; Wt 128.4 kg
[~2021-08-13 08:19] MED LIST changes: +DILANTIN100 MG PO; +KEPPRA1000 MG PO
--- NOTE | 2021-08-14 07:21 | EKG ---
[facility] [address] [place], [place] [address] Signed Normal sinus rhythm Normal ECG When compared with ECG of 05-JUN-2021 12:14, No significant change was found Confirmed by DOTTY AVINA MD ([id number]) on 08/14/2021 7:21:22 AM Electronically Signed By: DOTTY AVINA MD 08/14/21 0721 PATIENT NAME: KATHARINE CANNON JR Electrocardiogram DATE OF : 77 PHYSICIAN: DOTTY AVINA MD REPORT #: [id number] REPORT IS CONFIDENTIAL AND NOT TO BE RELEASED WITHOUT AUTHORIZATION
== END 2021-08-13 13:20 | disposition home or self-care (01) ==
LOC: ED 08:19
DX: R56.9 Unspecified convulsions (principal); E11.9 Type 2 diabetes mellitus without complications; K21.9 Gastro-esophageal reflux disease without esophagitis; Z88.8 Allergy status to other drugs, medicaments and biological substances; Z88.1 Allergy status to other antibiotic agents; Z79.84 Long term (current) use of oral hypoglycemic drugs; Z79.899 Other long term (current) drug therapy; Z20.822 Contact with and (suspected) exposure to COVID-19
CPT/HCPCS: 36415; 70450; 80053; 80164; 80185; 81001; 85025; 93005; 93010; 99284-25; C9803; U0003

== ENCOUNTER 2021-09-06 13:40 | Emergency (ER) | payer OTHER ==
[~2021-09-06] VITALS: Ht 167.6 cm; Wt 130.6 kg
--- OUTSIDE RECORDS SUMMARY | 2021-09-06 13:46 | XMS ---
PreManage Notification: KATHARINE CANNON Security It Network Engineer Events No recent Security Events currently on file CRITERIA MET - 6 ED Visits in 6 Months - [facility] - 2 Visits in 30 Days CARE PROVIDERS BYRON YODER Nurse Practitioner: Primary Care 06/10/2021-Current PHONE: [phone] Marie has no Care Guidelines for this patient. Jeffrey VISIT COUNT (12 MO.) 6 [facility] TOTAL 6 NOTE: Visits indicate total known visits. ED/UCC VISIT TRACKING (12 MO.) 09/06/2021 13:41 [facility] [place] TYPE: Emergency COMPLAINT: - POSS ALLERGIC REACTION 08/13/2021 08:20 [facility] [place] TYPE: Emergency COMPLAINT: - HEAD PAIN, CONFUSION DIAGNOSES: - salvage mechanic (current) use of oral hypoglycemic drugs - Type 2 diabetes mellitus without complications - Allergy status to other drugs, medicaments and biological substances - Headache, unspecified - Allergy status to other antibiotic agents - Gastro-esophageal reflux disease without esophagitis - Other vat skimmer (current) drug therapy - Unspecified convulsions 06/09/2021 08:19 [facility] [place] TYPE: Emergency COMPLAINT: - MULTIPLE SEIZURES DIAGNOSES: - Gastro-esophageal reflux disease without esophagitis - Other care home (current) drug therapy - Allergy status to other drugs, medicaments and biological substances - Allergy status to other antibiotic agents - Epilepsy, unspecified, not intractable, without status epilepticus - Type 2 diabetes mellitus without complications - salvage mechanic (current) use of oral hypoglycemic drugs [facility]21 [facility] [place] [facility] COMPLAINT: - ALTERED LOC DIAGNOSES: - Allergy status to other drugs, medicaments and biological substances - Gastro-esophageal reflux disease without esophagitis - Other care home (current) drug therapy - Unspecified convulsions - Type 2 diabetes mellitus without complications - salvage mechanic (current) use of oral hypoglycemic drugs - Allergy status to other antibiotic agents 06/05/2021 20:47 [facility] [place] [facility] COMPLAINT: - SEIZURE, HEAD INJ, CONFUSION DIAGNOSES: - Allergy status to other antibiotic agents - intermediate (current) use of oral hypoglycemic drugs - Epilepsy, unspecified, not intractable, without status epilepticus - Type 2 diabetes mellitus without complications - Other vat skimmer (current) drug therapy - Gastro-esophageal reflux disease without esophagitis - Allergy status to other drugs, medicaments and biological substances - Headache, unspecified 06/05/2021 12:02 [facility] [place] TYPE: Emergency COMPLAINT: - POSS SEIZURE DIAGNOSES: - Allergy status to other antibiotic agents - Other vat skimmer (current) drug therapy - Type 2 diabetes mellitus without complications - intermediate (current) use of oral hypoglycemic drugs - Allergy status to other drugs, medicaments and biological substances - Unspecified convulsions - Gastro-esophageal reflux disease without esophagitis INPATIENT VISIT TRACKING (12 MO.) No inpatient visits to display in this time frame [email or web address]
[2021-09-06] MEDS ORDERED: ATIVAN1 MG PO (14:20)
[2021-09-06] MEDS ORDERED: ESCITALOPRAM OX10 MG PO (14:21)
[2021-09-06] MEDS ORDERED: ASPIRIN81 MG PO (14:22)
[2021-09-06] MEDS ORDERED: ALVESCO6.1 GM INH (14:22)
[2021-09-06] MEDS ORDERED: FAMOTIDINE10 MG PO (14:23)
[2021-09-06] MEDS ORDERED: AVAPRO300 MG PO (14:23)
[2021-09-06] MEDS ORDERED: ONDANSETRON ODT8 MG PO (14:24)
[2021-09-06] MEDS ORDERED: IBUPROFEN400 MG PO (14:25)
[2021-09-06] MEDS ORDERED: PREDNISONE20 MG PO (14:48)
[2021-09-06] MEDS ORDERED: PEPCID20 MG PO (14:48)
== END 2021-09-06 15:28 | disposition home or self-care (01) ==
LOC: ED 13:40
DX: T78.40XA Allergy, unspecified, initial encounter (principal); E11.9 Type 2 diabetes mellitus without complications; K21.9 Gastro-esophageal reflux disease without esophagitis; Z88.8 Allergy status to other drugs, medicaments and biological substances; Z79.899 Other long term (current) drug therapy; Z79.84 Long term (current) use of oral hypoglycemic drugs; Z79.82 Long term (current) use of aspirin
CPT/HCPCS: 96372; 99283; A9270; J1100